=== PATIENT | male | born 1975 ===

== ENCOUNTER → 2018-06-27 22:03 | Outpatient (REF) | payer OTHER, SELFPAY ==
[2018-06-28 00:51] LABS: Rubella Antibody IgG 61.8 IU/mL (>15)
[2018-06-30 22:07] LABS: RPR Screen Nonreactive (Nonreactive)
[2018-07-01 13:57] LABS: Rubeola Measles IgG > 300.00 AU/mL (< 25.00); Varicella IgG Antibody > 4000.00 Index (< 135.00)
[2018-07-01 14:09] LABS: Mumps Virus IgG Antibody > 300.00 AU/mL (< 9.00)
== END ==
LOC: LAB 22:03
PROVIDERS: Visit Provider Family Medicine
DX: Z11.1 Encounter for screening for respiratory tuberculosis (principal); Z11.3 Encounter for screening for infections with a predominantly sexual mode of transmission
CPT/HCPCS: 36415; 86592; 86735; 86762; 86765; 86787; 87591